=== PATIENT | female | born 1980 | race Caucasian/White ===

== ENCOUNTER 2016-07-21 19:04 | Emergency (ER) | payer OTHER ==
[~2016-07-21] VITALS: Ht 157.5 cm; Wt 61.4 kg
[~2016-07-21 19:04] MED LIST: MOTRIN800 MG PO; Micronor,Nor-Q-D,Err PO; PREFERA-OB P1 TABLET PO
[2016-07-21 20:30] LABS: HEMATOCRIT 33.7 % (36.0-46.0); MCH 33.8 PG (29.0-34.0); MCHC 35.3 G/DL (30.0-36.0); MCV 95.7 FL (83-99); MEAN PLAT.VOLUME 11.7 uM^3 (9.5-12.4); PLATELET COUNT 189 K/uL (156-360); RED BLOOD COUNT 3.52 M/uL (3.80-5.20); WHITE BLOOD COUNT 11.6 K/uL (4.1-10.2)
[2016-07-21 20:41] LABS: CHLORIDE 108 mEq/L (99-109); POTASSIUM 4.8 mEq/L (3.7-5.4); SODIUM 139 mEq/L (136-147)
[2016-07-21 20:43] LABS: GLUCOSE 109 mg/dL (70-99)
[2016-07-21 20:44] LABS: ANION GAP 8 MEQ/L (2-14)
[2016-07-21 20:47] LABS: GFR ESTIMATE (CALCULATED) > 59 mL/min/
[2016-07-21 20:48] LABS: UREA NITROGEN (BUN) 13 mg/dL (9-23)
[2016-07-21 20:51] LABS: TROP-I INTERPRETATION NEGATIVE; TROPONIN-I < 0.01 ng/mL (0.0-0.30)
[2016-07-21 22:09] VITALS: BP 116/73
== END 2016-07-21 22:11 | disposition home or self-care (01) ==
LOC: EME 19:04
DX: R07.89 Other chest pain (principal); T78.40XA Allergy, unspecified, initial encounter; Z87.891 Personal history of nicotine dependence
CPT/HCPCS: 71020; 80048; 84484; 85027; 93005; 99281; 99283